=== PATIENT | male | born 1985 | race American Indian/Alaskan Native ===

== ENCOUNTER 2019-01-26 12:35 | Outpatient (CLI) | payer MEDICAID ==
--- NOTE | 2019-01-26 16:06 | XRay Report ---
BILATERAL KNEES STANDING, AP VIEW INDICATION: KNEE PAIN. COMPARISON: None. IMPRESSION: No acute osseous or soft tissue abnormality. No significant DJD. Signer Name: Silverio Barton Jr, MD Signed: 01/26/2019 4:02 PM Workstation Name: [id number]
== END 2019-01-26 12:36 | disposition home or self-care (01) ==
LOC: XRAY 12:35
PROVIDERS: ATTEND Orthopaedic Surgery
DX: M25.562 Pain in left knee (principal); M25.561 Pain in right knee
CPT/HCPCS: 73565